=== PATIENT | female | born 1955 | race Caucasian/White ===

== ENCOUNTER 2019-06-04 08:16 | Emergency (ER) | payer OTHER, MEDICARE, SELFPAY ==
--- NOTE | 2019-06-04 08:34 | ED.GENADULT ---
HPI - General Adult General Chief complaint: Upper Respiratory Infection Stated complaint: cough/sinus Time Seen by Provider: 06/04/19 08:42 Source: patient and RN notes reviewed Mode of arrival: ambulatory Limitations: no limitations History of Present Illness HPI narrative: 64-year-old female presents with complaints of upper respiratory infection, facial congestion, facial pain, clogged ears, and cough, for the past 4-5 days. Flonase and Albuterol with little relief. History of Sinus problems, COPD, and smoker. No facial swelling. Denies ear drainage, itching, tinnitus, hearing loss, or trauma. Dry cough. Nasal congestion and rhinorrhea. No chest pain or shortness of breath. Exacerbating factors consist of smoke exposure. Denies fever or chills. Denies nausea, vomiting, and abdominal pain. Remains active. Tolerating po intake well. Denies recent traveling. Denies concern for COVID-19 or exposures been home since [id number] order except for essential household needs and returned home. Some parts of this dictation were generated by voice recognition software and may contain typographical and/or grammatical inaccuracies. Related Data Home Medications Medication Instructions Recorded Confirmed Approx 15 Unknown Meds 06/04/19 albuterol sulfate 2 inh INHALATION QID 06/04/19 06/04/19 fluticasone propionate [Flonase 2 spray INTRANASAL DAILY 06/04/19 06/04/19 Allergy Relief] Allergies Allergy/AdvReac Type Severity Reaction Status Date / Time codeine Allergy Unknown Other Verified 06/04/19 08:42 Review of Systems Review of Systems: Narrative: CONSTITUTIONAL: Denies fever, chills, sweats. EYES: Denies visual changes, redness, discharge. ENT: Denies sore throat. Complains of rhinorrhea, congestion, bilateral clogged ears, otalgia. CARDIOVASCULAR: Denies chest pain, palpitations, edema. RESPIRATORY: Denies dyspnea, wheezing. Complains of dry cough. GASTROINTESTINAL: Denies abdominal pain, nausea, vomiting, diarrhea. GENITOURINARY: Denies dysuria, hematuria, abnormal discharge. SKIN: Denies rash or itching. MUSCULOSKELETAL: Denies acute back pain, joint pain, or myalgia. NEUROLOGIC: Denies numbness or focal weakness. PSYCHIATRIC: Denies anxiety or depression. All other systems reviewed are negative, except as documented in HPI and below. [facility] Past Medical History Medical History (Updated 06/05/19 @ 00:00 by Marysol Beckman) delivery delivered COPD (chronic obstructive pulmonary disease) Hypertension Surgical History Surgical History (Updated 06/04/19 @ 11:38 by DAMON Montes) H/O section History of neck surgery History of oophorectomy, unilateral RT Family History Family History (Updated 06/04/19 @ 11:39 by DAMON Montes) Father Pancreatic cancer Mother Breast cancer Social History Social History (Updated 06/04/19 @ 11:40 by DAMON Montes) Smoking packs per day: 1 Smoking cigarettes per day: 20.0 Years smoked: 51 Smoking pack-years: 51.00 Smoking status: Current every day smoker Smokeless tobacco user: chewing tobacco Alcohol intake: never Substance use: never Living arrangements: with family Occupation/Education: retired Gender identity (if verbalized by the patient): Female Exam Narrative: Exam Narrative: GENERAL: This is a well-nourished, well-developed patient, in no apparent distress. Talks in full sentences and ambulates with steady gait without dyspnea. HEAD: normocephalic, atraumatic. EYES: PERRL. Sclera clear/white. Vision is grossly intact. EARS: Pinna is normal shape and contour. RT ear with mild-moderate erythema no discharge. Clear external auditory canals. LT TM pearly ramirez with good cone of light, no erythema or suppuration with mild swelling canal and tenderness with manipulation. No gross hearing deficit. NOSE: External nose normal with no obvious nasal disc
[2019-06-04 08:35] VITALS: BP 132/74; PULSE 89; RESP 20; TEMP 36.5; O2SAT 100
== END 2019-06-04 09:07 | disposition home or self-care (01) ==
PROVIDERS: Emergency Provider Nurse Practitioner Family
DX: H66.001 Acute suppurative otitis media without spontaneous rupture of ear drum, right ear (principal); H60.502 Unspecified acute noninfective otitis externa, left ear; F17.210 Nicotine dependence, cigarettes, uncomplicated; J44.9 Chronic obstructive pulmonary disease, unspecified; I10 Essential (primary) hypertension
CPT/HCPCS: 99213; G0463

== ENCOUNTER 2020-09-17 11:47 | Emergency (ER) | payer MEDICARE, OTHER, SELFPAY ==
--- NOTE | 2020-09-17 11:56 | ED.GENADULT ---
HPI - General Adult General Chief complaint: Unspecified Stated complaint: Vision Problem Time Seen by Provider: 09/17/20 11:56 Source: patient and RN notes reviewed History of Present Illness HPI narrative: Patient is a 65-year-old female who presents the urgent care with complaints of blurry vision. Patient states that when she wakes up in the morning that seems to be clear as day and then progresses throughout the day. Patient denies of any known injury to the eye. States that she woke up approximately 2 weeks ago with the sudden onset of blurry vision. Patient denies of any history of CVA. Denies of headaches, weakness, or any neuro deficits. Spouse denies of any confusion or slurred speech. Spouse states that he did get her an appointment at his [facility] on October 06 but they were unable to see her any sooner. Patient has been using Visine and tear gel without any improvements. Patient states that there are times that she feels that there is some grittiness in the eyes . No other acute complaints. No acute distress noted. Patient aware of the plan of care. Some parts of this dictation were generated by voice recognition software and may contain typographical and/or grammatical inaccuracies. Related Data Home Medications Medication Instructions Recorded Confirmed albuterol sulfate 2 inh INHALATION QID 06/04/19 06/04/19 fluticasone propionate [Flonase 2 spray INTRANASAL DAILY 06/04/19 06/04/19 Allergy Relief] Mucinex D 09/17/20 aspirin PO 09/17/20 desvenlafaxine succinate mg PO 09/17/20 duloxetine mg PO 09/17/20 ezetimibe mg 09/17/20 fluticasone furoate-vilanterol INHALATION 09/17/20 [Breo Ellipta] lisinopril 09/17/20 lorazepam 09/17/20 methocarbamol mg 09/17/20 mirabegron [Myrbetriq] mg PO 09/17/20 pantoprazole PO 09/17/20 simvastatin mg 09/17/20 trazodone 09/17/20 Allergies Allergy/AdvReac Type Severity Reaction Status Date / Time codeine Allergy Unknown Other Verified 06/04/19 08:42 Review of Systems Review of Systems: CONSTITUTIONAL: Denies fever, chills, or sweats. EYES: Denies visual changes, redness, or discharge. ENT: Denies rhinorrhea, congestion, sore throat, or otalgia. CARDIOVASCULAR: Denies chest pain, palpitations, or edema. RESPIRATORY: Denies cough or dyspnea. GASTROINTESTINAL: Denies abdominal pain, nausea, vomiting, or diarrhea. GENITOURINARY: Denies dysuria or hematuria. SKIN: Denies rash or itching. MUSCULOSKELETAL: Denies back pain, joint pain, or myalgia. NEUROLOGIC: Denies headache, numbness, or weakness. All other systems reviewed are negative, except as documented in HPI. [facility] Past Medical History Medical History (Updated 09/17/20 @ 12:12 by DAMON Castro) delivery delivered COPD (chronic obstructive pulmonary disease) Hypertension Surgical History Surgical History (Updated 06/04/19 @ 11:38 by DAMON Montes) H/O section History of neck surgery History of oophorectomy, unilateral RT Family History Family History (Updated 06/04/19 @ 11:39 by DAMON Montes) Father Pancreatic cancer Mother Breast cancer Social History Social History (Updated 06/04/19 @ 11:40 by DAMON Montes) Smoking packs per day: 1 Smoking cigarettes per day: 20.0 Years smoked: 51 Smoking pack-years: 51.00 Smoking status: Current every day smoker Smokeless tobacco user: chewing tobacco Alcohol intake: never Substance use: never Gender identity (if verbalized by the patient): Female Comments At the time of my signature, I reviewed and agree with the nursing past medical, surgical, social, and family history. There is no relevant family history pertinent to the patient complaint. Exam Narrative: GENERAL: This is a well-nourished, well-developed patient, in no apparent distress. HEAD: normocephalic, atraumatic. EYES: PERRL. Very mild scattered erythema to the s
[2020-09-17 12:08] VITALS: BP 131/88; PULSE 98; RESP 18; TEMP 36.2; O2SAT 98
== END 2020-09-17 12:16 | disposition home or self-care (01) ==
PROVIDERS: Emergency Provider Nurse Practitioner Family
DX: H35.30 Unspecified macular degeneration (principal); F17.210 Nicotine dependence, cigarettes, uncomplicated; F17.220 Nicotine dependence, chewing tobacco, uncomplicated; J44.9 Chronic obstructive pulmonary disease, unspecified; I10 Essential (primary) hypertension
CPT/HCPCS: 99213; G0463

== ENCOUNTER 2022-01-27 14:52 | Emergency (ER) | payer MEDICARE, OTHER, SELFPAY ==
--- NOTE | 2022-01-27 15:01 | ED.FEMALEGU ---
HPI - Female Genitourinary General Chief complaint: Urogenital-Female Stated complaint: uti Time Seen by Provider: 01/27/22 15:30 Source: patient, RN notes reviewed and old records reviewed Mode of arrival: ambulatory Limitations: no limitations History of Present Illness HPI Narrative: 66-year-old female presents to the [facility] with complaints of I think I have a UTI. Patient denies fevers. Patient states her symptoms are urinary frequency and my urine smells bad. Related Data Home Medications Medication Instructions Recorded Confirmed albuterol sulfate 90 mcg/actuation 2 inh inhalation QID 06/04/19 06/04/19 aerosol inhaler fluticasone propionate 50 2 spray intranasal DAILY 06/04/19 06/04/19 mcg/actuation nasal spray,suspension (Flonase Allergy Relief) aspirin 81 mg tablet PO 09/17/20 desvenlafaxine succinate 100 mg mg PO 09/17/20 tablet,extended release 24 hr duloxetine 60 mg capsule,delayed mg PO 09/17/20 release ezetimibe 10 mg tablet mg 09/17/20 fluticasone furoate 200 inhalation 09/17/20 mcg-vilanterol 25 mcg/dose inhalation powder (Breo Ellipta) lisinopril 10 mg tablet 09/17/20 lorazepam 1 mg tablet 09/17/20 methocarbamol 750 mg tablet mg 09/17/20 mirabegron 50 mg tablet,extended mg PO 09/17/20 release 24 hr (Myrbetriq) pantoprazole 40 mg tablet,delayed PO 09/17/20 release simvastatin 20 mg tablet mg 09/17/20 trazodone 50 mg tablet 09/17/20 Allergies Allergy/AdvReac Type Severity Reaction Status Date / Time codeine Allergy Unknown Other Verified 01/27/22 15:06 Review of Systems Review of Systems: All systems reviewed & are unremarkable except as noted in HPI and below Constitutional: Constitutional: Reports no additional constitutional complaints Eyes: Eyes: Reports no additional eye complaints ENT: Reports system reviewed and no additional complaints, except as documented Cardiovascular: Cardiovascular: Reports no additional cardiovascular complaints, Denies chest pain and Denies dyspnea Respiratory: Respiratory: Reports no additional respiratory complaints, Denies chest congestion, Denies cough and Denies dyspnea Gastrointestinal: Gastrointestinal: Reports no additional gastrointestinal complaints, Denies abdominal pain, Denies nausea and Denies vomiting Genitourinary: Genitourinary: Reports as per HPI and Reports dysuria Musculoskeletal: Musculoskeletal: Reports no additional musculoskeletal complaints Integumentary/Breasts: Skin/Breast: Reports system reviewed and no additional complaints, except as docu Neurologic: Reports system reviewed and no additional complaints, except as documented Psychiatric: Psychiatric: Reports no additional psychiatric complaints Allergic/Immunologic: Allergic/Immunologic: Reports no additional allergic/immunologic complaints PMF Past Medical History Medical History delivery delivered COPD (chronic obstructive pulmonary disease) Hypertension Surgical History Surgical History H/O section History of neck surgery History of oophorectomy, unilateral RT Family History Family History Father Pancreatic cancer Mother Breast cancer Social History Social History Smoking packs per day: 1 Smoking cigarettes per day: 20.0 Years smoked: 51 Smoking pack-years: 51.00 Smoking status: Current every day smoker Smokeless tobacco user: chewing tobacco Alcohol intake: never Substance use: never Gender identity (if verbalized by the patient): Female Comments At the time of my signature, I reviewed and agree with the nursing past medical, surgical, social, and family history. There is no relevant family history pertinent to the patien
== END 2022-01-27 16:02 | disposition home or self-care (01) ==
PROVIDERS: Emergency Provider Nurse Practitioner
DX: N39.0 Urinary tract infection, site not specified (principal); F17.219 Nicotine dependence, cigarettes, with unspecified nicotine-induced disorders; F17.220 Nicotine dependence, chewing tobacco, uncomplicated; J44.9 Chronic obstructive pulmonary disease, unspecified; I10 Essential (primary) hypertension; Z79.82 Long term (current) use of aspirin
CPT/HCPCS: 81003; 87077; 87086; 87186; 99213; G0463